=== PATIENT | male | born 1950 | race Caucasian/White ===

== ENCOUNTER 2017-03-14 10:24 | Day surgery (SDC) | payer BC, MEDICARE ==
[2017-03-13 08:34] VITALS: BMI 26.1
[~2017-03-14 10:24] MED LIST: LACTATED RINGERS 1,000 ML IV SCH; LIDOCAINE 1% 20 ML VIAL (10MG/ML) FOR IV START INTRADERMA PRN
[2017-03-14 10:45] VITALS: TEMP 98
[2017-03-14] MEDS ORDERED: PROPOFOL 10 MG/ML 20 ML VIAL IV ONE (11:41)
[2017-03-14] MEDS ORDERED: LIDOCAINE 1% INJ 10MG/ML (20 ML MDV) ONE (11:41)
--- NOTE | 2017-03-14 12:03 | P.PCN ---
Date of Procedure: 03/14/17 Procedure(s) Performed: Brief history: Patient is a pleasant 66-year-old white male, scheduled for an elective upper endoscopy as well as colonoscopy as a part of evaluation of lungs any history of GERD and prior history of colon polyps. 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 Procedure performed: Esophagogastroduodenoscopy biopsy Colonoscopy Preoperative diagnosis: Long-standing history of GERD History of colon polyps Anesthesia: MAC Procedure: After informed consent was obtained from the patient was brought into the endoscopy unit and IV sedation was administered by anesthesia under continuous monitoring. Initially upper endoscopy was done. The Olympus GF 160 video endoscope was inserted inserted into the mouth and esophagus intubated without any difficulty and was gradually advanced into the stomach and duodenum and carefully examined. The bulb and second part of the duodenum and mild duodenitis. The scope was then withdrawn into the stomach adequately insufflated with air and upon careful examination the antrum had mild gastritis and biopsies were done from this area. The body, cardia and fundus appeared normal. The scope was then withdrawn into the esophagus. The GE junction was located at 40 cm to the incisors. It appeared regular with no erythema erosions or ulcerations. There was a tongue of King's appearing mucosa extended 2 cm proximal to the GE junction and this was biopsied. Rest of the esophagus appeared normal. Patient tolerated the procedure well. At this time the patient continued to remain sedation. Initial digital rectal examination was normal. Olympus CF 160 video colonoscope was then inserted into the rectum and gradually advanced to the cecum without any difficulty. Careful examination was performed as the scope was gradually being withdrawn. The prep was excellent. The cecum, ascending colon, transverse colon, descending colon, sigmoid colon and rectum appeared normal. and sigmoid diverticulosis seen. Retroflexion was performed in the rectum andinternal hemorrhoidsre noted. Patient tolerated the procedure well. Impression: 1. Upper endoscopy revealed King's esophagus and duodenitis. 2. Colonoscopy revealed scattered sigmoid diverticulosis and small internal hemorrhoids. Recommendations: Findings of this examination were discussed with the patient as well as his family. He was advised to follow with the biopsy results. If the biopsy confirms the presence of King's esophagus he can have a repeat upper endoscopy in 2 years. In the meantime he was advised to start on Prilosec 20 mg daily and follow antireflux measures. He was advised to have a repeat surveillance colonoscopy in 5 years.
[2017-03-14 12:30] VITALS: BP 118/72; PULSE 63; RESP 18
== END 2017-03-14 12:51 | disposition home or self-care (01) ==
LOC: ORWHC2ENDO 10:24
PROVIDERS: ATTEND Internal Medicine Gastroenterology
DX: K21.9 Gastro-esophageal reflux disease without esophagitis (principal); K22.70 Barrett's esophagus without dysplasia; K29.80 Duodenitis without bleeding; K29.50 Unspecified chronic gastritis without bleeding; I10 Essential (primary) hypertension; E78.5 Hyperlipidemia, unspecified; Z12.11 Encounter for screening for malignant neoplasm of colon; Z86.010 Personal history of colon polyps; K57.30 Diverticulosis of large intestine without perforation or abscess without bleeding; K64.8 Other hemorrhoids; Z79.899 Other long term (current) drug therapy; Z79.82 Long term (current) use of aspirin
CPT/HCPCS: 88305; 88342; 43239; J2001; J2704; G0105

== ENCOUNTER → 2018-04-02 | Outpatient (CLI) | payer MEDICARE ==
--- NOTE | 2018-04-02 14:26 | XR ---
EXAMINATION TYPE: XR chest 2V DATE OF EXAM: 04/02/2018 COMPARISON: Prior chest x-ray November 01, 2017. HISTORY: Persistent cough. TECHNIQUE: Frontal and lateral views of the chest are obtained. FINDINGS: There is some chronic parenchymal change without suspicious new focal air space opacity, p leural effusion, or pneumothorax seen. The cardiac silhouette size is within normal limits with athe rosclerotic change in aortic knob. The osseous structures are intact. IMPRESSION: Chronic changes without suspicious acute infiltrate.
== END | disposition home or self-care (01) ==
LOC: RADXRMAIN 13:30
PROVIDERS: ATTEND Nurse Practitioner Family
DX: R05 Cough (principal)
CPT/HCPCS: 71046

== ENCOUNTER 2019-03-17 10:04 | Day surgery (SDC) | payer MEDICARE ==
[2019-03-16 08:41] VITALS: BMI 27.2
[2019-03-17 10:27] VITALS: BP 174/106; TEMP 97.6
[2019-03-17] MEDS: LIDOCAINE 1% 20 ML VIAL (10MG/ML) FOR IV START INTRADERMA ONE (10:34)
[2019-03-17] MEDS: LACTATED RINGERS 1,000 ML IV SCH (10:34)
[2019-03-17] MEDS ORDERED: PROPOFOL 10 MG/ML 20 ML VIAL IV ONE (11:32)
[2019-03-17] MEDS ORDERED: LIDOCAINE 1% INJ 10MG/ML (20 ML MDV) ONE (11:32)
--- NOTE | 2019-03-17 11:41 | P.PCN ---
Date of Procedure: 03/17/19 Procedure(s) Performed: BRIEF HISTORY: Patient is a 68-year-old, pleasant, male, scheduled for an upper endoscopy as part of variation of GERD and surveillance of King's esophagus. PROCEDURE PERFORMED: Esophagogastroduodenoscopy with biopsy. PREOPERATIVE DIAGNOSIS:GERD/King's esophagus. IV sedation per anesthesia. PROCEDURE: After informed consent was obtained, the patient was brought into the endoscopy unit. IV sedation was administered by Anesthesia under continuous monitoring. Initially the Olympus GIF-140 video endoscope was inserted into the mouth. Esophagus intubated without any difficulty. It was gradually advanced into the stomach and duodenum and carefully examined. The bulb and the second part of the duodenum appeared normal. The scope at this time was withdrawn to the stomach, adequately insufflated with air, and upon careful examination, mucosa of the antrum, body, cardia and the fundus appeared normal. The scope was then withdrawn into the esophagus. Small sliding Hiatal hernia noted. The GE junction was located at 41 cm from the incisors. There was short segment of King's esophagus extending 1 cm proximal to the GE junction and a small island of King's appearing mucosa just into this which were biopsied. The rest of the esophagus appeared normal. There were no erosions or ulcerations seen and the patient tolerated the procedure well. IMPRESSION: 1. Short segment King's esophagus. 2. Small sliding Hiatal hernia. RECOMMENDATIONS: The findings of this examination were discussed with the patient as well as his family. He was advised to follow with the biopsy results. He will remain on Prilosec 20 mg twice daily and follow antireflux me asures. If the biopsy does not show any evidence of dysplasia, he can have a repeat upper endoscopy in 2 years.
[2019-03-17 11:56] VITALS: PULSE 66; RESP 14
== END 2019-03-17 12:30 | disposition home or self-care (01) ==
LOC: ORWHC2ENDO 10:04
PROVIDERS: ATTEND Internal Medicine Gastroenterology
DX: K22.70 Barrett's esophagus without dysplasia (principal); K44.9 Diaphragmatic hernia without obstruction or gangrene; K21.9 Gastro-esophageal reflux disease without esophagitis; Z79.899 Other long term (current) drug therapy; I48.92 Unspecified atrial flutter; Z86.73 Personal history of transient ischemic attack (TIA), and cerebral infarction without residual deficits
CPT/HCPCS: 88305; 43239; J2001; J2704

== ENCOUNTER → 2024-10-18 | Outpatient (CLI) | payer MEDICARE ==
--- NOTE | 2024-10-18 12:46 | XR ---
EXAMINATION TYPE: XR elbow complete LT DATE OF EXAM: 10/18/2024 COMPARISON: NONE CLINICAL INDICATION: Male, 74 years old with history of M79.602 L elbow pain; TECHNIQUE: 3 views FINDINGS: Mild degenerative spurring ulnar trochlear and radial capitellar joint. No elbow joint effu kylah. No acute fracture, subluxation, dislocation seen. 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 No acute osseous abnormality seen. [facility], , 10/18/2024 12:44 PM
== END | disposition home or self-care (01) ==
LOC: RADXRMAIN 12:17
PROVIDERS: ATTEND Student in an Organized Health Care Education/Training Program
DX: S40.022A Contusion of left upper arm, initial encounter (principal); M19.022 Primary osteoarthritis, left elbow; W19.XXXA Unspecified fall, initial encounter